=== PATIENT | male | born 1980 | race Caucasian/White ===

== ENCOUNTER 2023-01-27 11:33 | Outpatient (CLI) | payer BC | END 2023-01-27 11:34 | disposition home or self-care (01) | LOC: SCSRAD 11:33 | PROVIDERS: ATTEND Nurse Practitioner Family | DX: S46.202A Unspecified injury of muscle, fascia and tendon of other parts of biceps, left arm, initial encounter (principal) ==

== ENCOUNTER 2023-03-08 16:06 | Outpatient (CLI) | payer BC | END 2023-03-08 16:07 | disposition home or self-care (01) | LOC: ULT 16:06 | PROVIDERS: ATTEND Nurse Practitioner Family | DX: M79.662 Pain in left lower leg (principal); M63.86 Disorders of muscle in diseases classified elsewhere, lower leg | CPT/HCPCS: 93923 ==